=== PATIENT | male | born 1945 | race Caucasian/White ===

== ENCOUNTER 2016-12-08 10:38 | Outpatient (CLI) | payer MEDICARE, OTHER | END 2016-12-08 10:39 | disposition home or self-care (01) | DX: E78.5 Hyperlipidemia, unspecified (principal); M10.00 Idiopathic gout, unspecified site; Z79.899 Other long term (current) drug therapy; I10 Essential (primary) hypertension ==

== ENCOUNTER 2018-01-04 08:00 | Outpatient (CLI) | payer MEDICARE, OTHER ==
[2018-01-04 18:14] LABS: BASOPHILS % (AUTO) 0.7 %; EOSINOPHILS # (AUTO) 0.2 10^3/uL (0.0-0.7); HGB - HEMOGLOBIN 13.8 g/dL (14.0-18.0); LYMPHOCYTES # (AUTO) 1.8 10^3/uL (1.5-3.5); LYMPHOCYTES % (AUTO) 41.1 %; MEAN CORPUSCULAR HEMOGLOBIN 30.8 pg (27.0-31.0); MEAN CORPUSCULAR VOLUME 93.4 fL (80.0-94.0); MEAN PLATELET VOLUME 8.6 fL (7.4-11.4); MONOCYTES # (AUTO) 0.4 10^3/uL (0.0-1.0); MONOCYTES % (AUTO) 9.9 %; NEUTROPHILS # (AUTO) 1.9 10^3/uL (1.5-6.6); NEUTROPHILS % (AUTO) 44.3 %; PLT - PLATELET COUNT 212 10^3/uL (130-450); RED BLOOD COUNT 4.49 10^6/uL (4.70-6.10); RED CELL DISTRIBUTION WIDTH 13.5 % (12.0-15.0); WHITE BLOOD COUNT 4.3 x10^3/uL (4.8-10.8)
[2018-01-04 18:53] LABS: ALBUMIN 3.9 g/dL (3.2-5.5); ALBUMIN/GLOBULIN RATIO 1.3 (1.0-2.2); ALKALINE PHOSPHATASE 40 IU/L (42-121); ALT ALANINE AMINOTRANSFERASE 26 IU/L (10-60); AST ASPARTATE AMINOTRANSFERASE 25 IU/L (10-42); BILIRUBIN,TOTAL 0.8 mg/dL (0.2-1.0); BUN - BLOOD UREA NITROGEN 12 mg/dL (6-20); CALCIUM 9.2 mg/dL (8.5-10.3); CARBON DIOXIDE - CO2 29 mmol/L (21-32); CHLORIDE 100 mmol/L (101-111); CHOLESTEROL 169 mg/dL; GFR - MDRD 74 (>89); GLUCOSE 100 mg/dL (70-100); HDL CHOLESTEROL 56 mg/dL; LDL CHOLESTEROL,CALCULATED 89 mg/dL; LDL/HDL RATIO 1.6 (<3.6); SODIUM 137 mmol/L (135-145); URIC ACID 5.5 mg/dL (2.6-7.2); VLDL CHOLESTEROL 24 mg/dL
== END 2018-01-04 08:01 | disposition home or self-care (01) ==
LOC: LAB.S 08:00
PROVIDERS: ATTEND Internal Medicine
DX: D64.9 Anemia, unspecified (principal); E78.5 Hyperlipidemia, unspecified; M10.9 Gout, unspecified; I10 Essential (primary) hypertension; Z12.5 Encounter for screening for malignant neoplasm of prostate; Z79.899 Other long term (current) drug therapy
CPT/HCPCS: 36415; 80053; 80061; 84550; 85025; G0103; 83721; 84153

== ENCOUNTER 2018-08-09 08:20 | Outpatient (CLI) | payer MEDICARE, OTHER ==
[2018-08-09 18:28] LABS: PSA FREE 0.342 ng/mL (0.16-2.81)
[2018-08-09 18:30] LABS: PSA TOTAL 1.907 ng/mL (0.000-2.000)
== END 2018-08-09 08:21 ==
LOC: LAB.S 08:20
PROVIDERS: ATTEND Internal Medicine
DX: R97.20 Elevated prostate specific antigen [PSA] (principal)
CPT/HCPCS: 36415; 84154

== ENCOUNTER 2021-02-05 10:13 | Outpatient (CLI) | payer MEDICARE, OTHER ==
[2021-02-05 15:41] LABS: ALBUMIN 4.2 g/dL (3.2-5.5); ALBUMIN/GLOBULIN RATIO 1.4 (1.0-2.2); ALKALINE PHOSPHATASE 51 IU/L (42-121); ALT ALANINE AMINOTRANSFERASE 27 IU/L (10-60); AST ASPARTATE AMINOTRANSFERASE 27 IU/L (10-42); BILIRUBIN,TOTAL 0.7 mg/dL (0.2-1.0); BUN - BLOOD UREA NITROGEN 17 mg/dL (6-20); CALCIUM 9.3 mg/dL (8.5-10.3); CARBON DIOXIDE - CO2 28 mmol/L (21-32); CHLORIDE 101 mmol/L (101-111); CHOL/HDL RATIO 2.5 (<5.0); CHOLESTEROL 154 mg/dL; CREATININE 0.9 mg/dL (0.6-1.2); GFR - MDRD 82 (>89); GLUCOSE 102 mg/dL (70-100); HDL CHOLESTEROL 61 mg/dL; LDL CHOLESTEROL,CALCULATED 80 mg/dL; LDL/HDL RATIO 1.3 (<3.6); POTASSIUM 4.3 mmol/L (3.5-5.0); SODIUM 136 mmol/L (135-145); TOTAL PROTEIN 7.2 g/dL (6.7-8.2); TRIGLYCERIDES 64 mg/dL; URIC ACID 5.8 mg/dL (2.6-7.2); VLDL CHOLESTEROL 13 mg/dL
== END 2021-02-05 10:14 | disposition home or self-care (01) ==
LOC: LAB.S 10:13
PROVIDERS: ATTEND Internal Medicine
DX: E78.5 Hyperlipidemia, unspecified (principal); M10.9 Gout, unspecified
CPT/HCPCS: 36415; 80053; 80061; 83721; 84550

== ENCOUNTER 2021-09-09 08:07 | Outpatient (CLI) | payer MEDICARE, OTHER ==
[2021-09-09 14:36] LABS: BASOPHILS # (AUTO) 0.1 10^3/uL (0.0-0.1); BASOPHILS % (AUTO) 1.2 %; EOSINOPHILS # (AUTO) 0.2 10^3/uL (0.0-0.7); EOSINOPHILS % (AUTO) 4.5 %; HGB - HEMOGLOBIN 14.1 g/dL (14.0-18.0); LYMPHOCYTES # (AUTO) 2.3 10^3/uL (1.5-3.5); LYMPHOCYTES % (AUTO) 46.5 %; MEAN CORPUSCULAR HEMOGLOBIN 31.8 pg (27.0-31.0); MEAN CORPUSCULAR HGB CONC 32.8 g/dL (32.0-36.0); MEAN CORPUSCULAR VOLUME 96.8 fL (80.0-94.0); MEAN PLATELET VOLUME 10.4 fL (7.4-11.4); MONOCYTES # (AUTO) 0.5 10^3/uL (0.0-1.0); MONOCYTES % (AUTO) 10.3 %; NEUTROPHILS # (AUTO) 1.8 10^3/uL (1.5-6.6); NEUTROPHILS % (AUTO) 37.3 %; PLT - PLATELET COUNT 223 10^3/uL (130-450); RED BLOOD COUNT 4.44 10^6/uL (4.70-6.10); RED CELL DISTRIBUTION WIDTH 13.2 % (12.0-15.0); WHITE BLOOD COUNT 4.9 x10^3/uL (4.8-10.8)
[2021-09-09 15:40] LABS: CALCIUM 9.3 mg/dL (8.5-10.3); CARBON DIOXIDE - CO2 28 mmol/L (21-32); CHLORIDE 104 mmol/L (101-111); GLUCOSE 120 mg/dL (70-100); POTASSIUM 4.4 mmol/L (3.5-5.0); SODIUM 140 mmol/L (135-145)
[2021-09-09 16:14] LABS: ALBUMIN 4.1 g/dL (3.2-5.5); ALBUMIN/GLOBULIN RATIO 1.5 (1.0-2.2); ALKALINE PHOSPHATASE 46 IU/L (42-121); ALT ALANINE AMINOTRANSFERASE 25 IU/L (10-60); AST ASPARTATE AMINOTRANSFERASE 23 IU/L (10-42); BILIRUBIN,TOTAL 0.8 mg/dL (0.2-1.0); BUN - BLOOD UREA NITROGEN 18 mg/dL (6-20); CREATININE 0.9 mg/dL (0.6-1.2); GFR - MDRD 82 (>89); TOTAL PROTEIN 6.9 g/dL (6.7-8.2)
[2021-09-09 17:15] LABS: CRP - C-REACTIVE PROTEIN < 1.0 mg/dL (0-1.0)
== END 2021-09-09 08:08 | disposition home or self-care (01) ==
LOC: LAB.S 08:07
PROVIDERS: ATTEND Internal Medicine
DX: K51.90 Ulcerative colitis, unspecified, without complications (principal); Z86.010 Personal history of colon polyps
CPT/HCPCS: 36415; 80053; 83993; 85025; 86140

== ENCOUNTER 2024-03-23 12:04 | Emergency (ER) | payer MEDICARE, OTHER ==
--- NOTE | 2024-03-23 13:01 | ED Physician Documentation ---
PD HPI BACK PAIN - Stated complaint Stated Complaint: BACK PX - Chief complaint Chief Complaint: Back Pain - History obtained from History obtained from: Patient - History of Present Illness Timing - onset: How many weeks ago Timing - duration: Weeks Timing - details: Abrupt onset (he noted pain with lifting 2-3 weeks ago and was intermittent, now wiht significant worsening past few days. Unable to move really without pain and so here for treatment.), Still present Location: Lower, Right Quality: Pain, Spasm Associated symptoms: Incontinent of urine (mild leaking at times of urine.). No: Fever, Weakness, Numbness Improves with: Rest. No: Meds Worsened by: Movement, Lifting Contributing factors: Lifting Recently seen: Not recently seen Review of Systems Constitutional: denies: Fever, Chills : reports: Incontinent (some mild leaking of urine (he states more difficultly to get up and bathroom, and is thus not holding it completely).) Skin: denies: Rash, Lesions PD PAST MEDICAL HISTORY - Past Medical History Past Medical History: Yes Cardiovascular: Hypertension, High cholesterol Respiratory: None Neuro: None Endocrine/Autoimmune: None GI: None : None HEENT: None Psych: None Musculoskeletal: Gout Derm: None - Past Surgical History Past Surgical History: Yes General: Other - Present Medications Home Medications: Ambulatory Orders Medication Instructions Recorded Confirmed Atorvastatin [Lipitor] 40 mg PO DAILY 03/23/24 03/23/24 lisinopriL [Lisinopril] 20 mg PO DAILY 03/23/24 03/23/24 Lidocaine Patch 5% [Lidoderm Patch] 1 patch TOP DAILY PRN #10 patch 03/24/24 Meloxicam [Mobic] 7.5 mg PO BID 10 Days #30 tablet 03/24/24 dexAMETHasone [Decadron] 4 mg PO DAILY #5 tablet 03/24/24 methocarbamoL [Robaxin] 500 mg PO Q6H PRN #30 tablet 03/24/24 oxyCODONE [Roxicodone] 5 mg PO Q6H PRN #12 tablet 03/24/24 - Allergies Allergies/Adverse Reactions: Allergies Allergy/AdvReac Type Severity Reaction Status Date / Time No Known Drug Allergies Allergy Verified 03/23/24 12:14 - Social History Does the pt smoke?: No Smoking Status: Never smoker Does the pt drink ETOH?: No Does the pt have substance abuse?: No - Immunizations Immunizations are current?: No - POLST Patient has POLST: No PD ED PE NORMAL - Vitals Vital signs reviewed: Yes - General General: Alert and oriented X 3, Well developed/nourished, Other (appears in considerable pain with movement. Lying supine on cart and guarded ROM for torso. ) - Abdomen Abdomen: Soft, Non tender - Derm Derm: Normal color, Warm and dry - Neuro Neuro: Alert and oriented X 3, No motor deficit, No sensory deficit, Normal speech, Other (decreased reflexes knees and ankles but symettric and has normal sensation to touch and pressure, including gluteal and inguinal areas. ) Results - Vitals Vitals: Oxygen O2 Source Room air - Rads (name of study) lumbar CT Relevant Findings:: Prelim report reviewed (spondylitic changes diffusely. Particular tight neural foraminal outlet L4/L5. No fractures. No central canal stenosis. ), EMP independent interpretation of test PD Medical Decision Making - ED course Complexity details: reviewed results (I have concern for structural process and given the onset abruptly with some lifing, I felt CT good to eval for compression fx, disc out, spondylolisthesis, etc. ), re-evaluated patient (Pt given meds here in ER with IM Toradol and Diladuid. along with PO robaxin and decadron. IMproved reasonably well that he is able to get up to sitting without assistance (still hurting of course but not nearly as much). ), considered differential (back pain with lifting recently, with persistent pain that has increassed, with radiation to right thigh posteriorly. No weak nor numb. Has had some minor urine incontinence, but states pain with getting up to bathroom. ), d/w patient Departure - Departure Disposition: Home, Self Care Clinical Impression: Sciatica, Back pain Condition: Stable Record reviewed to determine appropriate education?: Yes Instructions: ED Sciatica Follow-Up: Jerardo Arceo MD [Primary Care Provider] - Prescriptions: dexAMETHasone [Decadron] 4 mg PO DAILY #5 tablet Lidocaine Patch 5% [Lidoderm Patch] 1 patch TOP DAILY PRN #10 patch PRN Reason: pain Meloxicam [Mobic] 7.5 mg PO BID 10 Days #30 tablet methocarbamoL [Robaxin] 500 mg PO Q6H PRN #30 tablet PRN Reason: Spasms oxyCODONE [Roxicodone] 5 mg PO Q6H PRN #12 tablet PRN Reason: Pain Comments: Your CT scan does show significant 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 It seems particularly tight around the L4-5 level regarding the nerve root encroachment. There is no signs of crowding in the main spinal canal per se. The arthritic changes in chronic changes obviously would not have happened just in the last few weeks. That takes time to build up in create tightness through the areas. The change now is likely some misalignment and added pressure onto the nerve roots. They can be inflammation in there as well. Complementary imaging such as an MRI might be appropriate if this does not improve well in the near term. Continue with your physical therapy as you have been doing. 1 you can add other physical modalities such as massage or chiropractic if you desire. Topical heat and stretching and lidocaine patches can be useful as well. To complement this would be a medication approach of anti-inflammatories with muscle relaxants and pain medicine. Initially would start with some steroid type anti-inflammatories. I prescribed Decadron 4 mg daily for the next several days. After that then start the meloxicam NSAID anti-inflammatory twice daily. Take all of these with food. In addition use the methocarbamol muscle relaxant to help with stiffness and spasms. For the pain, to all this had acetaminophen/Tylenol 500 to 650 mg 4 times daily regularly. Interposed her use in addition the oxycodone/acetaminophen if needed for worse pain. Be aware this will potentially cause constipation etc. Use a stool softener as needed. That can be useful for stool softener or even without constipation per se as your back muscles are used to help have firm stools and bowel movements so looser is better. I sent your prescriptions to your preferred pharmacy in [place]. Follow-up with your primary care regarding further evaluation and assessment. I am prescribing a short course of narcotic pain medication for you. These are potentially dangerous and addictive medications that should be used carefully. These medications may constipate you. Take an [id number] stool softener such as docusate twice daily with plenty of water while taking these medications. If you go 24 hours without a bowel movement, take [id number] MiraLAX, per package instructions. Do not drink or drive while taking these medications. If you received narcotic or sedating medications while in the emergency department do not drive for 24 hours. Store this medication in a safe, secure place and out of reach of children. It is a violation of federal law to give or sell this medication to another person or to use in a manner other than prescribed. The ED will not refill narcotic prescriptions, including prescriptions lost or stolen. You can dispose of unwanted medications at the [facility]'s office or at several pharmacies such as [facility]. Discharge Date/Time: 03/23/24 15:50
[2024-03-23] MEDS: dexAMETHasone 4 MG TABLET PO STA (14:10)
[2024-03-23] MEDS: methocarbamoL 500 MG TABLET PO STA (14:10)
[2024-03-23] MEDS: HYDROmorphone 1 MG/ML CARPUJECT IM STA (14:10)
[2024-03-23] MEDS: KETOROLAC 30 MG/ML VIAL IM STA (14:11)
--- NOTE | 2024-03-23 14:32 | CT Report ---
PROCEDURE: Lumbar Spine WO INDICATIONS: right lumbar pain for 2 weeks, sciatic. TECHNIQUE: Noncontrast 3 mm thick sections acquired from the T12 level to the sacrum. Sagittal and coronal refo rmats were constructed. For radiation dose reduction, the following was used: automated exposure co ntrol, adjustment of mA and/or kV according to patient size. COMPARISON: None. FINDINGS: Image quality: Diagnostic Bones: Moderate overall degenerative changes. Particular disc space height loss is seen at L5-S1 and L1-L2. No traumatic subluxation. No acute appearing vertebral body height loss. Small endplate deform ities likely representing Schmorl's nodes are present. There is facet arthropathy. On limited CT evaluation, probably moderate thecal sac narrowing is seen at L1-L2 and L2 on L3, due t o posterior osteophytes and disc complexes. Mild to moderate thecal sac narrowing likely also involvi ng the subarticular recesses is seen at L3-L4 and L5-S1. Moderate to severe neural foraminal narrowin g is seen at L4-L5, probably worse on the right. Mild to moderate neural foraminal narrowing is seen at multiple levels elsewhere. Soft tissues: There are atherosclerotic calcifications. No retroperitoneal hematoma. No paravertebral drainable fluid collection. IMPRESSION: Moderate overall spondylotic changes with areas of thecal sac and neural foraminal narrowing as descr ibed above. Concern MRI for more detailed evaluation if necessary. No acute appearing vertebral body height loss or traumatic subluxation. Reviewed by: Yoni Buckley MD on 03/23/2024 2:31 PM PDT Approved by: Yoni Buckley MD on 03/23/2024 2:31 PM PDT Station ID: [id number]
[2024-03-23 15:22] VITALS: BP 139/105; O2SAT 96
[2024-03-23] MEDS: oxyCODONE 5 MG TABLET PO STA (15:27)
== END 2024-03-23 15:50 | disposition home or self-care (01) ==
LOC: ED 12:04
DX: M54.41 Lumbago with sciatica, right side (principal); I10 Essential (primary) hypertension; E78.00 Pure hypercholesterolemia, unspecified; M10.9 Gout, unspecified; Z79.899 Other long term (current) drug therapy
CPT/HCPCS: 72131; 96372; 99283; 99284; A9270; J1170; J8540